=== PATIENT | female | born 1995 | race Caucasian/White ===

== ENCOUNTER 2024-04-18 09:09 | Inpatient (IN) ==
[2024-04-18] MEDS: IPRATROPIUM/ALBUTEROL 3 ML AMPUL.NEB NEB ONE ×5 (09:52→12:15)
[2024-04-18] MEDS: methylPREDNISolone SOD SUCC 125 MG/2 ML VIAL IV ONE (09:52)
[2024-04-18 09:57] LABS: Basophils # (Auto) 0.09 K/mcL (0.00-0.30); Basophils % (Auto) 0.5 % (0.0-2.0); Eosinophils # (Auto) 1.09 K/mcL (0.00-0.70); Eosinophils % (Auto) 6.3 % (0.0-7.0); Hematocrit 52.6 % (34.1-44.9); Hemoglobin 17.6 g/dL (11.2-15.7); Lymphocytes % (Auto) 7.5 % (15.5-49.0); Mean Cell Volume 94.3 fL (80.0-100.0); Mean Corpuscular HGB Conc 33.5 g/dL (31.0-36.0); Mean Platelet Volume 10.5 fL (8.8-12.5); Monocytes # (Auto) 0.97 K/mcL (0.10-0.90); Monocytes % (Auto) 5.6 % (1.0-12.0); Neutrophils % (Auto) 79.9 % (38.0-78.0); Platelet Count 236 K/mcL (140-440); RBC 5.58 M/mcL (3.59-5.38); Red Cell Distribution Width 12.5 % (11.5-14.5); WBC 17.4 K/mcL (4.5-11.0)
[2024-04-18 10:06] LABS: ABG Methemoglobin 0.3 % (0.4-1.5); Total Hemoglobin 19.1 gm/Dl (12.0-15.0); VBG Base Excess -3 (-2-3); VBG HCO3 21.7 mmol/L (24.0-28.0); VBG Oxygen Saturation 84.2 % (40.0-70.0); VBG PCO2 38.7 mmHg (41.0-51.0); VBG PH 7.37 U (7.32-7.42); VBG PO2 53.1 mmHg (25.0-40.0); VBG Total CO2 22.9 mmol/L (25.0-29.0)
[2024-04-18 10:36] LABS: Blood Urea Nitrogen 15 mg/dL (6-20); Calcium 8.9 mg/dL (8.6-10.4); Carbon Dioxide 20 mmol/L (22-30); Chloride 104 mmol/L (96-108); Glomerular Filtration Rate 86; Glucose 107 mg/dL (70-105); Potassium 4.2 mmol/L (3.3-5.1); Sodium 137 mmol/L (133-145)
[2024-04-18] MEDS: 0.9 % SODIUM CHLORIDE 1,000 ML IV ONE (11:04)
[2024-04-18] MEDS: AZITHROMYCIN 250 MG TABLET PO ONE (11:17)
[2024-04-18] MEDS: MAGNESIUM SULFATE 2 GM/50 ML BAG IV ONE (13:37)
[2024-04-18] MEDS ORDERED: ACETAMINOPHEN 325 MG TABLET PO PRN (14:41)
[2024-04-18] MEDS ORDERED: SENNOSIDES 1 TABLET PO PRN (14:41)
[2024-04-18] MEDS ORDERED: ONDANSETRON 4 MG/2 ML VIAL IV PRN (14:41)
[2024-04-18] MEDS: LEVALBUTEROL 1.25 MG/3 ML AMPUL.NEB NEB SCH (15:00)
[2024-04-18] MEDS: 0.9 % SODIUM CHLORIDE 10 ML SYRINGE IV SCH (15:26)
[2024-04-18] MEDS ORDERED: PROPRANOLOL 10 MG TABLET PO SCH (17:00)
[2024-04-18] MEDS ORDERED: metFORMIN 500 MG TAB.XL.24H PO SCH ×2 (17:30→21:00)
[2024-04-18] MEDS: PROPRANOLOL 10 MG TABLET PO SCH (20:51)
[2024-04-19] MEDS: LEVALBUTEROL 1.25 MG/3 ML AMPUL.NEB NEB PRN (03:54)
[2024-04-19 06:37] LABS: Basophils # (Auto) 0.04 K/mcL (0.00-0.30); Basophils % (Auto) 0.2 % (0.0-2.0); Eosinophils # (Auto) 0 K/mcL (0.00-0.70); Eosinophils % (Auto) 0 % (0.0-7.0); Hematocrit 42.2 % (34.1-44.9); Hemoglobin 14.4 g/dL (11.2-15.7); Lymphocytes # (Auto) 1.18 K/mcL (1.50-4.80); Lymphocytes % (Auto) 5.4 % (15.5-49.0); Mean Cell Volume 93.8 fL (80.0-100.0); Mean Corpuscular HGB Conc 34.1 g/dL (31.0-36.0); Mean Platelet Volume 10.9 fL (8.8-12.5); Monocytes # (Auto) 0.87 K/mcL (0.10-0.90); Neutrophils % (Auto) 89.6 % (38.0-78.0); Platelet Count 255 K/mcL (140-440); Red Cell Distribution Width 12.7 % (11.5-14.5); WBC 21.8 K/mcL (4.5-11.0)
[2024-04-19 06:41] LABS: ALT/SGPT 13 U/L (<40); AST/SGOT 12 U/L (<32); Albumin 3.8 gm/dL (3.2-5.2); Albumin/Globulin Ratio 1.5 (1.0-2.3); Alkaline Phosphatase 112 U/L (39-117); Bilirubin,Direct < 0.2 mg/dL (0-0.3); Bilirubin,Total 0.3 mg/dL (0.1-1.0); Blood Urea Nitrogen 14 mg/dL (6-20); Calcium 8.6 mg/dL (8.6-10.4); Carbon Dioxide 22 mmol/L (22-30); Chloride 106 mmol/L (96-108); Globulin 2.5 gm/dL (2.2-3.7); Glomerular Filtration Rate 86; Glucose 158 mg/dL (70-105); Lactate Dehydrogenase 173 U/L (135-225); Phosphorous 2.2 mg/dL (2.5-4.5); Potassium 4.3 mmol/L (3.3-5.1); Sodium 138 mmol/L (133-145); Triglycerides 61 mg/dL (<150); Uric Acid 4.6 mg/dL (2.5-8.0)
[2024-04-19] MEDS: methylPREDNISolone SOD SUCC 125 MG/2 ML VIAL IV SCH (09:57)
[2024-04-20 07:01] LABS: Basophils # (Auto) 0.03 K/mcL (0.00-0.30); Basophils % (Auto) 0.1 % (0.0-2.0); Eosinophils # (Auto) 0.01 K/mcL (0.00-0.70); Eosinophils % (Auto) 0 % (0.0-7.0); Hematocrit 45.7 % (34.1-44.9); Hemoglobin 15.3 g/dL (11.2-15.7); Lymphocytes # (Auto) 1.51 K/mcL (1.50-4.80); Lymphocytes % (Auto) 6.1 % (15.5-49.0); Mean Cell Volume 95.4 fL (80.0-100.0); Mean Corpuscular HGB Conc 33.5 g/dL (31.0-36.0); Mean Platelet Volume 11.2 fL (8.8-12.5); Monocytes # (Auto) 0.54 K/mcL (0.10-0.90); Monocytes % (Auto) 2.2 % (1.0-12.0); Neutrophils % (Auto) 89.6 % (38.0-78.0); Platelet Count 235 K/mcL (140-440); RBC 4.79 M/mcL (3.59-5.38); Red Cell Distribution Width 12.8 % (11.5-14.5); WBC 24.9 K/mcL (4.5-11.0)
[2024-04-20 22:08] LABS: Erythropoietin-SO 8.4 mIU/mL (2.6-18.5)
== END 2024-04-20 13:12 | disposition home or self-care (01) | DRG 202 ==
LOC: ED 09:09 → MEDSUR 14:28
PROVIDERS: ADMIT Internal Medicine; ATTEND Internal Medicine